=== PATIENT | male | born 1970 | race Two or more races ===

== ENCOUNTER → 2020-10-14 | Outpatient (CLI) | payer OTHER ==
--- NOTE | 2020-10-14 16:42 | RAD ---
EXAM: Lumbar spine, 3 views. HISTORY: Pain. COMPARISON: None. FINDINGS: 3 views of the lumbar spine are obtained. There is mild lumbar hyperlordosis. There is no s ignificant listhesis. There is degenerative endplate remodeling at multiple levels. There is facet ar thropathy predominantly the lower lumbar levels. IMPRESSION: Multilevel degenerative change, primarily at the lower lumbar levels. No acute osseous fi nding. Electronically signed by: Willow Boyce MD (10/14/2020 4:40 PM) [email or web address]
== END ==
LOC: RAD 10:45
PROVIDERS: ATTEND Family Medicine
DX: M47.816 Spondylosis without myelopathy or radiculopathy, lumbar region (principal)
CPT/HCPCS: 72100